=== PATIENT | female | born 1965 | race Caucasian/White ===

== ENCOUNTER 2017-01-30 16:45 | Emergency (ER) | payer MEDICAID ==
[~2017-01-30] VITALS: Ht 167.6 cm; Wt 95.3 kg
[2017-01-30 17:02] VITALS: BP 146/87
[2017-01-30] MEDS ORDERED: BACITRACIN TOP OINT 1 UD PKG TOP ONE ×2 (20:16→20:30)
== END 2017-01-30 20:35 | disposition home or self-care (01) ==
LOC: ER 16:50
DX: S01.81XA Laceration without foreign body of other part of head, initial encounter (principal); W01.0XXA Fall on same level from slipping, tripping and stumbling without subsequent striking against object, initial encounter; Y93.89 Activity, other specified; Y92.89 Other specified places as the place of occurrence of the external cause; Y99.8 Other external cause status
CPT/HCPCS: 12013; 70450

== ENCOUNTER 2017-02-10 09:02 | Emergency (ER) | payer MEDICAID ==
[~2017-02-10] VITALS: Ht 167.6 cm; Wt 95.3 kg
[2017-02-10 09:22] VITALS: BP 127/93
== END 2017-02-10 09:46 | disposition home or self-care (01) ==
LOC: ER 09:02
DX: S01.81XD Laceration without foreign body of other part of head, subsequent encounter (principal); X58.XXXD Exposure to other specified factors, subsequent encounter

== ENCOUNTER 2019-07-21 13:25 | Emergency (ER) | payer MEDICAID ==
[~2019-07-21] VITALS: Ht 167.6 cm; Wt 99.8 kg
[2019-07-21 14:05] VITALS: BP 128/91
[2019-07-21] MEDS ORDERED: ACETAMINOPHEN 325 MG TAB PO ONE (15:00)
[2019-07-21] MEDS ORDERED: TETANUS-DIPTH-ACEL PERTUSSIS 0.5ML SYR Tdap IM ONE (15:15)
== END 2019-07-21 15:55 | disposition home or self-care (01) ==
LOC: ER 13:25
DX: S60.415A Abrasion of left ring finger, initial encounter (principal); W55.03XA Scratched by cat, initial encounter; Y93.89 Activity, other specified; Y92.098 Other place in other non-institutional residence as the place of occurrence of the external cause; Y99.8 Other external cause status
CPT/HCPCS: 90471; 90715